=== PATIENT | male | born 1985 | race African-American/Black ===

== ENCOUNTER 2018-05-22 19:43 | Emergency (ER) | payer SELFPAY ==
[2018-05-22] MEDS ORDERED: Benzocaine 20% Topical Spray UD MUCMEM ONE (19:49)
[2018-05-22] MEDS ORDERED: Lidocaine 2% Viscous Solution 15 ML Cup PO ONE (19:49)
--- NOTE | 2018-05-22 19:49 | EDM.PDOC ---
ED HPI GENERAL MEDICAL PROBLEM - General Chief Complaint: ENT Problem Stated Complaint: ORAL PAIN Time Seen by Provider: 05/22/18 19:47 Source of Information: Reports: Patient History Limitations: Reports: No Limitations - History of Present Illness INITIAL COMMENTS - FREE TEXT/NARRATIVE: HISTORY AND PHYSICAL: History of present illness: Patient is a 32-year-old male who presents to the emergency room with left lower dental pain. He states this has been bothering him for approximately one week. He has been using [id number] Tylenol and ibuprofen without relief. He does have multiple dental caries and has a "grill" during the upper and lower portion of the exposed teeth. He states he is currently looking for a dentist to definitively care for the posterior molars. Review of systems: As per history of present illness and below otherwise all systems reviewed and negative. Past medical history: As per history of present illness and as reviewed below otherwise noncontributory. Surgical history: As per history of present illness and as reviewed below otherwise noncontributory. Social history: No reported history of drug or alcohol abuse. Family history: As per history of present illness and as reviewed below otherwise noncontributory. Physical exam: General: Well-developed and well-nourished 32-year-old -[place] male. Alert and oriented. Nontoxic appearing and in no acute distress. HEENT: Atraumatic, normocephalic, pupils equal and reactive bilaterally, negative for conjunctival pallor or scleral icterus, mucous membranes moist, spelled dental caries noted. Erythema along the gumline of #20 and 19 throat clear, neck supple, nontender, trachea midline. No drooling or trismus noted. No meningeal signs Lungs: Clear to auscultation, breath sounds equal bilaterally, chest nontender. Heart: S1S2, regular rate and rhythm without overt murmur Abdomen: Soft, nondistended, nontender. Negative for masses or hepatosplenomegaly. Negative for costovertebral tenderness. Pelvis: Stable nontender. Genitourinary: Deferred. Rectal: Deferred. Skin: Intact, warm, dry. No lesions or rashes noted. Extremities: Atraumatic, negative for cords or calf pain. Neurovascular unremarkable. Neuro: Awake, alert, oriented. Cranial nerves II through XII unremarkable. Cerebellum unremarkable. Motor and sensory unremarkable throughout. Exam nonfocal. Notes: Medications as prescribed. We did discuss supportive care and the need for dental visit in the next week. He voices understanding and is agreeable to plan of care and denies any further questions or concerns at this time. Diagnostics: None Therapeutics: Viscous Lidocaine/[place] Prescription: Pen VK Tramadol Impression: Dental Caries Plan: 1. Please take the antibiotic as prescribed. 2. Tylenol and/or ibuprofen as needed for pain management. "Tooth Balls" have been given to you; apply along the gumline every 2-3 hours as needed. Do not swallow these; external use only. Tramadol as needed for moderate to severe pain. This is a controlled medication and may cause drowsiness, so do not take while driving or needing to be functioning outside the house. 3. Follow-up with a dentist for definitive care. Return to the ED as needed and as discussed. Definitive disposition and diagnosis as appropriate pending reevaluation and review of above. - Related Data Home Meds: Home Meds Penicillin V Potassium [Veetids] 500 mg PO TID 10 Days #30 tab 05/22/18 [Rx] traMADol [Ultram] 50 mg PO Q4H PRN #20 tab 05/22/18 [Rx] ED ROS ENT - Review of Systems Review Of Systems: ROS reveals no pertinent complaints other than HPI. ED EXAM, ENT - Physical Exam Exam: See Below (See dictation) Course - Vital Signs Last Recorded V/S: Last Vital Signs Temp 97.9 F 05/22/18 19:59 Pulse 59 L 05/22/18 19:59 Resp 20 05/22/18 19:59 BP 112/55 L 05/22/18 19:59 Pulse Ox 96 05/22/18 19:59 - Orders/Labs/Meds Meds: Medications Discontinued Medications Generic Name Dose Route Start Last Admin Trade Name Freq PRN Reason Stop Dose Admin Benzocaine 2 each 05/22/18 19:49 Hurricaine One 20% MUCMEM 05/22/18 19:50 ONETIME ONE Lidocaine HCl 15 ml 05/22/18 19:49 Xylocaine 2% Viscous PO 05/22/18 19:50 ONETIME ONE Departure - Departure Time of Disposition: 20:10 Disposition: Home, Self-Care 01 Clinical Impression: Dental caries - Discharge Information Prescriptions: Penicillin V Potassium [Veetids] 500 mg PO TID 10 Days #30 tab traMADol [Ultram] 50 mg PO Q4H PRN #20 tab PRN Reason: Pain Referrals: PCP,None [Primary Care Provider] - Forms: ED Department Discharge Additional Instructions: The following information is given to patients seen in the emergency department who are being discharged to home. This information is to outline your options for follow-up care. We provide all patients seen in our emergency department with a follow-up referral. The need for follow-up, as well as the timing and circumstances, are variable depending upon the specifics of your emergency department visit. If you don't have a primary care physician on staff, we will provide you with a referral. We always advise you to contact your personal physician following an emergency department visit to inform them of the circumstance of the visit and for follow-up with them and/or the need for any referrals to a consulting specialist. The emergency department will also refer you to a specialist when appropriate. This referral assures that you have the opportunity for follow-up care with a specialist. All of these measure are taken in an effort to provide you with optimal care, which includes your follow-up. Under all circumstances we always encourage you to contact your private physician who remains a resource for coordinating your care. When calling for follow-up care, please make the office aware that this follow-up is from your recent emergency room visit. If for any reason you are refused follow-up, please contact the [facility] Emergency Department at and asked to speak to the emergency department charge nurse. [facility] [address] [place] [id number] 1. Please take the antibiotic as prescribed. 2. Tylenol and/or ibuprofen as needed for pain management. "Tooth Balls" have been given to you; apply along the gumline every 2-3 hours as needed. Do not swallow these; external use only. Tramadol as needed for moderate to severe pain. This is a controlled medication and may cause drowsiness, so do not take while driving or needing to be functioning outside the house. 3. Follow-up with a dentist for definitive care. Return to the ED as needed and as discussed.
== END 2018-05-22 20:20 | disposition home or self-care (01) ==
LOC: MW.ED 19:43
DX: K02.9 Dental caries, unspecified (principal)
CPT/HCPCS: 99282; A9270

== ENCOUNTER 2019-02-12 14:03 | Emergency (ER) | payer SELFPAY ==
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
--- NOTE | 2019-02-12 15:22 | CR ---
EXAMINATION: Thoracic spine HISTORY: Mid back pain COMPARISON: None TECHNIQUE: AP and lateral views FINDINGS: The thoracic spinal alignment is normal. The vertebral body heights and disc spaces appear well-maintained. There is no fracture or acute osseous head and body. Bone mineralization is normal. IMPRESSION: Grossly unremarkable thoracic spine.
== END 2019-02-12 15:37 | disposition home or self-care (01) ==
LOC: MW.ED 14:03
DX: M54.6 Pain in thoracic spine (principal); F17.210 Nicotine dependence, cigarettes, uncomplicated
CPT/HCPCS: 72072; 72072-26; 99283-25